=== PATIENT | female | born 1985 | race Caucasian/White ===

== ENCOUNTER 2018-05-07 15:45 | Outpatient (RCR) | payer OTHER, SELFPAY ==
--- NOTE | 2018-05-07 16:56 | DS.PCM_ITS ---
Massage Therapy Discharge Summary: Initial Evaluation: 12/10/2017 Diagnosis: Chronic Back Pain No. of Visits: Date of last visit: 05/07/2018 Goals: Decreased pain Decreased stress This patient is being discharged from our care at the [facility]. Thank you, Noy Wick LMT
== END 2018-05-07 19:00 | disposition home or self-care (01) ==
LOC: MASS 15:45
PROVIDERS: Family Provider Internal Medicine; PCP Internal Medicine; Visit Provider Internal Medicine
DX: M54.9 Dorsalgia, unspecified (principal); G89.29 Other chronic pain
CPT/HCPCS: 97124

== ENCOUNTER → 2024-07-08 | Outpatient (CLI) | payer OTHER, SELFPAY ==
--- NOTE | 2024-07-08 07:47 | BI_ITS ---
PROCEDURE: SCRN MAMM (CAD)W/SANDHYA BILAT REASON FOR EXAM: F, Age 38 y/o , No family history. TECHNIQUE: Bilateral screening digital breast tomosynthesis with 2D and 3D images. Computer aided detection. COMPARISON: None. This is a baseline mammogram. FINDINGS: There are scattered areas of fibroglandular density. No suspicious masses, areas of developing architectural distortion, or suspicious calcifications. BI/SCRN MAMM (CAD)W/SANDHYA BILAT IMPRESSION: BI-RADS 1: NEGATIVE. RECOMMEND ANNUAL MAMMOGRAPHIC SCREENING. Follow-up code: Routine Follow-up The patient will be notified of the results by letter. Reading Location: [facility]
== END | disposition home or self-care (01) ==
PROVIDERS: PCP Internal Medicine; Referring Provider Obstetrics & Gynecology; Visit Provider Obstetrics & Gynecology
DX: Z12.31 Encounter for screening mammogram for malignant neoplasm of breast (principal)
CPT/HCPCS: 77063; 77067

== ENCOUNTER 2024-07-23 11:30 | Day surgery (SDC) | payer OTHER, SELFPAY ==
--- NOTE | 2024-07-23 12:02 | PCM.PRE.AN2 ---
ASA Classification* ASA Classification ASA Classification: 2 Assessment & Plan Anesthesia* Anesthesia Assessment Anesthesia Assessment: Discussed sedation and/or anesthesia options, risks, benefits, and alternatives with patient/parents/legal guardian/POA. Questions invited. The patient/parents/legal guardian/POA seems to understand and agrees to proceed with anesthesia plan. Reviewed the physical assessment, medical history, allergy history and patient home medications list prior to surgery/procedure/anesthetic and documented any changes. Performed airway and anesthesia risk assessments. Anesthesia Type Anesthesia Type: MAC Anesthesia Focused Assessment* Airway Assessment Mouth opens: >3 cm Mallampati Score: II Focused Labs Anesthesia Preop lab: CBC WBC 9.8 K/mm3 (4.4-11.0) 01/06/24 09:35 01/06/24 RBC 4.51 M/mm3 (4.2-5.4) 01/06/24 09:35 01/06/24 Hgb 14.0 g/dL (12.0-15.0) 01/06/24 09:35 01/06/24 Hct 41.0 % (37-47) 01/06/24 09:35 01/06/24 Plt Count 310 K/mm3 (150-450) 01/06/24 09:35 01/06/24 CHEMISTRY Potassium 4.2 mmol/L (3.5-5.1) 01/06/24 09:35 01/06/24 Sodium 140 mmol/L (136-145) 01/06/24 09:35 01/06/24 Phosphorus 2.6 mg/dL (2.5-4.9) 01/06/24 09:35 01/06/24 BUN 14 mg/dL (7-18) 01/06/24 09:35 01/06/24 Creatinine 0.89 mg/dL (0.55-1.02) 01/06/24 09:35 01/06/24 Glucose 95 mg/dL (74-106) 01/06/24 09:35 01/06/24 COAG Urine Test Pending 07/23/24 11:54 07/23/24 Pre-Assessment Diagnosis/Proposed Procedure Planned Operative Procedure(s): EGD Anesthesia History 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 When Was Last Pacemaker Check QUESTION #4 FULL TEXT: You/Your Family Experience fever (hyperthermia) with Anesthesia Last Oral Intake Last Oral intake: Last Oral Intake NPO since Meds taken in AM with sips of water? Meds patient instructed to take am of surgery PONV PONV - benzene operator: PONV - benzene operator Female Yes 07/21/24 10:47 HX of Motion Sickness Yes 07/21/24 10:47 HX of N/V After Surgery No 07/21/24 10:47 Non-Smoker Yes 07/21/24 10:47 Duration of Surgery greater No 07/21/24 10:47 than 60 minutes Number of Risk Factors 3 07/21/24 10:47 PONV Score Moderate Risk 07/21/24 10:47 Height & Weight Height & Weight: Anesthesia: Height & Weight Height 5 ft 3 in 01/07/24 16:34 Respiratory Assessment Respiratory Assessment - benzene operator: Respiratory Tract Infection Hx - benzene operator Hx Respiratory Tract Infection No 07/21/24 10:47 STOP Sleep Apnea STOP Sleep Apnea - benzene operator: STOP Sleep Apnea - benzene operator Hx Hypertension No 07/21/24 10:47 Hx Sleep Apnea No 07/21/24 10:47 CPAP BIPAP Do you snore loudly (louder No 07/21/24 10:47 than talking or can be heard Do you often feel tired/ No 07/21/24 10:47 fatigued/ sleepy during daytime? Has anyone observed you stop No 07/21/24 10:47 breathing during sleep? STOP Results Negative 07/21/24 10:47 QUESTION #5 FULL TEXT : Do you snore loudly (louder than talking or can be heard through closed doors)? 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 Specify any problems Hx of Preganancy in last 3 N/A 07/21/24 10:47 Months Nurse Filling Out Transfusion NBUCHER 07/21/24 10:47 & Questions: Date: 07/21/24 07/21/24 10:47 Time: 10:48 07/21/24 10:47 Patient unable to answer at this time (ie. confused, unrespo /Reproduction History /Reproductive History - benzene operator: /Reproductive Hx- benzene operator Hx Now No 07/21/24 10:47 Gestational Age (in weeks): EDC: Hx Hx Para Hx Section SAB No 07/21/24 10:47 [facility] Medical History (Updated 07/21/24 @ 10:54 by Madonna Banerjee) Wears glasses Wears contact lenses High cholesterol GERD (gastroesophageal reflux disease) History of echocardiogram Preventative health care Elevated blood pressure reading Recent childbirth Vaginal tear resulting from childbirth perianal tear Back pain Migraines Hay fever Hemorrhoids Home Medications ?Medication ?Instructions ?Recorded ?Last Taken ?Type cetirizine 10 mg capsule (Zyrtec) 10 mg PO DAILY PRN allergy symptoms 12/27/20 Unknown History cholecalciferol (vitamin D3) 125 125 mcg PO DAILY 12/27/20 Unknown History mcg (5,000 unit) capsule elderberry fruit 200 mg capsule 200 mg PO DAILY 12/27/20 Unknown History levonorgestrel 20.4 mcg/24 hr (up 1 device intrauterine ONCE 12/27/20 Unknown History to 8 yrs) 52 mg intrauterine device (Liletta) melatonin 10 mg capsule 10 mg PO HS PRN sleep 12/27/20 Unknown History vitamin B comp and C no.3 15 mg-10 1 cap PO DAILY 12/27/20 Unknown History mg-50 mg-5 mg-300 mg capsule (B Complex Plus Vitamin C) lysine 500 mg tablet (L-Lysine) 500 mg PO DAILY 01/07/24 Unknown History flaxseed oil 1,000 mg capsule 1,000 mg PO DAILY 07/21/24 Unknown History Allergy/AdvReac Type Severity Reaction Status Date / Time tuberculin, purified protein Allergy Unknown Verified 07/23/24 12:01 deriva Family History Father Hypercholesterolemia Mother Suicide Depression Grandmother Anemia Arthritis Blood clot in vein Myocardial infarction Hypertension Parkinson disease COPD (chronic obstructive pulmonary disease) CAD (coronary artery disease) Surgical History (Updated 07/21/24 @ 10:54 by Madonna Banerjee) History of hysteroscopy History of wisdom tooth extraction (~2002) Social History (Updated 01/07/24 @ 16:34 by Madonna Arcos MA) adopted: No household members: children number of children: 2 current occupational status: employed 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
[2024-07-23 12:07] VITALS: BP 142/97; PULSE 107; RESP 16; TEMP 37.2; O2SAT 98; BMI 36.5
[2024-07-23 12:15] LABS: Internal QC Validated? YES +Cl - CLEAR BKGD; Pregnancy, Urine Negative Negative
--- NOTE | 2024-07-23 12:30 | EGD_PTH ---
PATIENT: TAMARA ROWE LOC: EN U#:[id number] AGE/SX: 38/F ROOM: RE07/23/[address]: Dr. Luis Santos DO : 1985 BED: DIS: 07/23/2024 SPEC #: [id number] RECD: 07/26/24 09:36 STATUS: NADYA KIKI #: [id number] MAHIN: 07/23/24 12:[address]: Luis Santos DEPT: SURGICAL PATHOLOGY RECD BY: Isidro Epstein ENTERED: 07/26/24 09:37 SP TYPE: EGD BIOPSY ADELINA DR: Dr. Cristin Odom MD Tissues: A - Esophagus, NOS B - Duodenum, NOS Procedures: Surgery Specimen Level IV HEADER OPERATION: EGD with biopsies and dilation PRE-OP DIAGNOSIS: Difficulty swallowing TISSUE SUBMITTED: A- Random esophagus biopsies, B- Duodenal biopsies MICROSCOPIC DIAGNOSIS A. Random esophagus, biopsy: Squamous epithelium and mucosaExudate new (7-8 eosinophils/HPF)No glandular epithelium B. Duodenum, biopsy:Duodenal mucosa without dysplasia, intraepithelial lymphocytes, or neutrophils.Jodi James MD, 07/31/2024 MICROSCOPIC DESCRIPTION Slides are reviewed. GROSS DESCRIPTION A. Received in fixative is one container labeled with the patient's name and designated Random esophagus biopsies. The specimen consists of multiple irregular fragments of light hickman soft tissue that in aggregate measure 1.6 x 0.8 x 0.2 cm. The specimen is totally submitted in one cassette. B. Received in fixative is one container labeled with the patient's name and designated Duodenal biopsies. The specimen consists of two irregular fragments of light hickman soft tissue that in aggregate measure 0.6 x 0.6 x 0.2 cm. The specimen is totally submitted in one cassette. MS/mr 07/26/2024 CPT:38360x6 , TC:2
--- NOTE | 2024-07-23 12:39 | PCM.HP.STD ---
HPI - General General Date of Admission: 07/23/24 Date of Service: 07/23/24 Chief Complaint: dysphagia HPI Narrative TAMARA ROWE, is a 38 F who presents for the evaluation of trouble swallowing and heartburn Details: Pt has been having intermittent issues with swallowing. It has happened a few times over the past 4-5 months. Typically it will get stuck and she will drink water and will then pass. However, she did have one incident where water was not helping it pass which caused her to have pain and anxiety. At the time she was eating a ham sandwich. She has heartburn on rare occasion and has only taken tums as needed. She denies lower GI issues like constipation, diarrhea or blood in her stool. She is on Metamucil for her cholesterol. She has 3-4 formed bm per day. She has never had a colonoscopy or EGD. [facility] Medical History Wears glasses Wears contact lenses High cholesterol GERD (gastroesophageal reflux disease) History of echocardiogram Preventative health care Elevated blood pressure reading Recent childbirth Vaginal tear resulting from childbirth perianal tear Back pain Migraines Hay fever Hemorrhoids Home Medications ?Medication ?Instructions ?Recorded ?Last Taken ?Type cetirizine 10 mg capsule (Zyrtec) 10 mg PO DAILY PRN allergy symptoms 12/27/20 Unknown History cholecalciferol (vitamin D3) 125 125 mcg PO DAILY 12/27/20 Unknown History mcg (5,000 unit) capsule elderberry fruit 200 mg capsule 200 mg PO DAILY 12/27/20 Unknown History levonorgestrel 20.4 mcg/24 hr (up 1 device intrauterine ONCE 12/27/20 Unknown History to 8 yrs) 52 mg intrauterine device (Liletta) melatonin 10 mg capsule 10 mg PO HS PRN sleep 12/27/20 Unknown History vitamin B comp and C no.3 15 mg-10 1 cap PO DAILY 12/27/20 Unknown History mg-50 mg-5 mg-300 mg capsule (B Complex Plus Vitamin C) lysine 500 mg tablet (L-Lysine) 500 mg PO DAILY 01/07/24 Unknown History flaxseed oil 1,000 mg capsule 1,000 mg PO DAILY 07/21/24 Unknown History Allergy/AdvReac Type Severity Reaction Status Date / Time tuberculin, purified protein Allergy Unknown Verified 07/23/24 12:01 deriva Family History Father Hypercholesterolemia Mother Suicide Depression Grandmother Anemia Arthritis Blood clot in vein Myocardial infarction Hypertension Parkinson disease COPD (chronic obstructive pulmonary disease) CAD (coronary artery disease) Surgical History History of hysteroscopy History of wisdom tooth extraction (~2002) Social History adopted: No household members: children number of children: 2 current occupational status: employed 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 pets and animals: No sexually active: Yes Smoking Status: Former smoker quit date: 05/12/06 Tobacco: How many years used: 10 alcohol intake: current alcohol intake frequency: a few times a month Alcohol type: wine substance use type: does not use caffeine: Yes (2) Type: coffee what type of physical activity do you participate in: walking, weight training and other details: Stairs @ work frequency: daily do you feel safe at home: Yes ROS Constitutional Constitutional: Denies fatigue, fever(s), poor appetite, weight gain or weight loss Gastrointestinal Gastrointestinal: Denies belching, bloating, change in bowel habits, change in stool character, chewing difficulty, coffee ground emesis, constipation, cramping, diarrhea, dyspepsia, dysphagia, early satiety, excessive flatus, fecal incontinence, heartburn, hematemesis, hematochezia, hemorrhoids, loose stools, melena, nausea, odynophagia, rectal bleeding, tenesmus, vomiting or weight changes Vital Signs Vital Signs Vital Signs: 07/23/24 12:07 07/23/24 12:07 Temperature 99 F Temperature Source Temporal Pulse Rate 107 H Respiratory Rate 16 Respiratory Pattern Normal Blood Pressure 142/97 H Blood Pressure Mean 112 Blood Pressure Source Monitor Blood Pressure Position Semi-Fowlers Blood Pressure Location Right Arm Pulse Ox 98 Oxygen Delivery Method Room Air Weight Weight: 206 lb 5.643 oz Body Mass Index (BMI) 36.5 Physical Exam Const alert, oriented x3, no apparent distress and healthy appearing General Appearance: cooperative GI normal to inspection, nondistended, normoactive bowel sounds, soft to palpation, non-tender and non-distended Percussion: normal to percussion Rectal Exam: deferred Results Lab / Micro Data Labs: Laboratory Results - last 24 hr 07/23/24 11:54: Urine Test Negative Assessment & Plan Assessment/Plan (1) Difficulty swallowing: PLAN: Assessment and Plan Assessment and Plan (1) Difficulty swallowing: Status: Acute Plan: This is a 38 yo female pt here for evaluation of difficulty swallowing intermittently over the past 4-5 months. She has had one severe instance where the food bolus would not pass with water which caused pain and anxiety. She will undergo EGD to assess for esophageal stenosis, dysmotility, or EOE. She will start on PPI therapy in the meantime. -Start omeprazole 20 mg daily -EGD with dilation if indicated Medications: New omeprazole 20 mg PO QDAY 60 caps 0RF
[2024-07-23 13:11] VITALS: BP 102/75; BP 142/97; PULSE 93; RESP 16; TEMP 36.7; O2SAT 96
[2024-07-23 13:15] VITALS: BP 104/80; BP 142/97; PULSE 94; RESP 16; O2SAT 96
--- NOTE | 2024-07-23 13:15 | OP.EGD_ITS ---
Patient Name: Angeles Hale Procedure Date: 07/23/2024 12:45 PM Date of : 1985 Age: 38 Procedure: Upper GI endoscopy Indications: Dysphagia, Heartburn Providers: Luis Santos DO Referring MD: Cristin Odom MD Medicines: Monitored Anesthesia Care Patient Profile: This is a 38 year old female. Refer to note in patient chart for documentation of history and physical. Patient has symptoms. Complications: No immediate complications. Procedure: Pre-Anesthesia Assessment: - Prior to the procedure, a History and Physical was performed, and patient medications and allergies were reviewed. The patient is competent. The risks and benefits of the procedure and the sedation options and risks were discussed with the patient. All questions were answered and informed consent was obtained. Patient identification and proposed procedure were verified by the physician in the pre-procedure area. Mental Status Examination: alert and oriented. Airway Examination: normal oropharyngeal airway and neck mobility. Respiratory Examination: clear to auscultation. CV Examination: normal. Prophylactic Antibiotics: The patient does not require prophylactic antibiotics. Prior Anticoagulants: The patient has taken no anticoagulant or antiplatelet agents. ASA Grade Assessment: II - A patient with mild systemic disease. After reviewing the risks and benefits, the patient was deemed in satisfactory condition to undergo the procedure. The anesthesia plan was to use monitored anesthesia care (MAC). Immediately prior to administration of medications, the patient was re-assessed for adequacy to receive sedatives. The heart rate, respiratory rate, oxygen saturations, blood pressure, adequacy of pulmonary ventilation, and response to care were monitored throughout the procedure. The physical status of the patient was re-assessed after the procedure. After obtaining informed consent, the endoscope was passed under direct vision. Throughout the procedure, the patient's blood pressure, pulse, and oxygen saturations were monitored continuously. The gastroscope was introduced through the mouth, and advanced to the second part of duodenum. The upper GI endoscopy was accomplished without difficulty. The patient tolerated the procedure well. Scope In: 12:57:40 PM Scope Out: 1:05:15 PM Total Procedure Duration Time 0 hours 7 minutes 35 seconds Findings: Mucosal changes including ringed esophagus, small-caliber esophagus and circumferential folds were found in the middle third of the esophagus and in the lower third of the esophagus. Esophageal findings were graded using the Eosinophilic Esophagitis Endoscopic Reference Score (EoE-EREFS) as: Edema Grade 1 Present (decreased clarity or absence of vascular markings), Rings Grade 2 Moderate (distinct rings that do not occlude passage of diagnostic 8-10 mm endoscope), Exudates Grade 1 Mild (scattered white lesions involving less than 10 percent of the esophageal surface area) and Furrows Grade 1 Mild (vertical lines without visible depth). A guidewire was placed and the scope was withdrawn. Dilation was performed with a Savary dilator with no resistance at 57 Fr. The dilation site was examined and showed moderate improvement in luminal narrowing. Estimated blood loss: none. A medium-sized hiatal hernia was present. Patchy mildly erythematous mucosa without active bleeding and with no stigmata of bleeding was found in the duodenal bulb. Biopsies were taken with a cold forceps for histology. Verification of patient identification for the specimen was done. Estimated blood loss was minimal. Impression: - Esophageal mucosal changes suggestive of eosinophilic esophagitis. Dilated. - Medium-sized hiatal hernia. - Erythematous duodenopathy. Biopsied. Recommendation: - Discharge patient to home. - Resume previous diet. - Continue present medications. - Await pathology results. Procedure Code(s): --- Professional --- 79009, Esophagogastroduodenoscopy, flexible, transoral; with insertion of guide wire followed by passage of dilator(s) through esophagus over guide wire 04925, 59,51, Esophagogastroduodenoscopy, flexible, transoral; with biopsy, single or multiple CPT copyright 2021 [employer]. All rights reserved. The codes documented in this report are preliminary and upon braille coder review may be revised to meet current compliance requirements. Luis Santos DO 07/23/2024 1:15:11 PM This report has been signed electronically. Number of Addenda: 0 Note Initiated On: 07/23/2024 12:45 PM
--- NOTE | 2024-07-23 13:15 | OP.CCLET_ITS ---
07/23/2024 Cristin Odom MD [address] [place] [address] [place] [address] Re : Upper GI endoscopy procedure for Angeles Hale Dear Dr. Odom This procedure was performed on Tuesday, July 23, 2024. My impressions and recommendations are as follows: Impressions : - Esophageal mucosal changes suggestive of eosinophilic esophagitis. Dilated. - Medium-sized hiatal hernia. - Erythematous duodenopathy. Biopsied. Recommendations : - Discharge patient to home. - Resume previous diet. - Continue present medications. - Await pathology results. My findings are described in the full procedure note, which is enclosed. If I can be of further assistance, please feel free to contact me at . Sincerely, Luis Friend, 07/23/2024 1:15:11 PM This report has been signed electronically.
--- NOTE | 2024-07-23 13:19 | PCM.POST.ANE ---
Anesthesia: Postop Eval I Current Vital Signs Temperature: 98 F Pulse Rate: 89 Blood Pressure: 102/75 Respiratory Rate: 16 Pulse Ox: 97 Oxygen Delivery Method: Room Air Assessment Airway patent: Yes Spontaneous unlabored respirations: Yes Mental status: Awake and Calm nausea: No Vomiting: No Anesthesia Complication: No Fluid Hydration Crystalloid volume administer (ml): 30 Total IV fluid infused: 30 Progress Note Anesthesia document: Postop Eval 1 completed: Yes
[2024-07-23 13:20] VITALS: BP 102/75; BP 106/77; BP 142/97; PULSE 85; PULSE 89; RESP 16; TEMP 36.6; O2SAT 95; O2SAT 97
[2024-07-23 13:32] VITALS: BP 107/75; BP 142/97; PULSE 78; RESP 16; TEMP 36.7; O2SAT 99
[2024-07-23 13:42] VITALS: BP 142/97
--- NOTE | 2024-07-23 15:16 | PCM.POSTANE2 ---
Anesthesia Postop Eval I Sum Postop Eval Completion status Anesthesia document: Postop Eval 1 completed: Yes Anesthesia Postop Eval I Summary Anesthesia Postop Eval I Summary: Anesthesia Postop Eval I: Assessment Summary Airway patent Yes 07/23/24 13:20 [email or web address] Spontaneous unlabored Yes 07/23/24 13:20 [email or web address] respirations Mental status Awake,Calm 07/23/24 13:20 [email or web address] nausea No 07/23/24 13:20 [email or web address] Vomiting No 07/23/24 13:20 [email or web address] Anesthesia Postop Eval I: Fluid Summary Crystalloid volume administer 30 07/23/24 13:20 [email or web address] (ml) Colloids volume administered ( ml) Blood Product volume administered (ml) Total IV fluid infused 30 07/23/24 13:20 [email or web address] Anesthesia Postop Eval I: Summary Notes Anesthesia Complication No 07/23/24 13:20 [email or web address] Anesthesia Complication Comment: Post-operative progress note Anesthesia: Postop Eval II Evaluation Mental status: Awake Pain Level: 0 nausea: No Vomiting: No
== END 2024-07-23 14:08 | disposition home or self-care (01) ==
LOC: EN 11:31 → AC 11:32
PROVIDERS: Anesthesiology; PCP Internal Medicine; Referring Provider Internal Medicine; Visit Provider Internal Medicine Gastroenterology
PROC: 0DJ08ZZ Inspection of Upper Intestinal Tract, Via Natural or Artificial Opening Endoscopic (ICD-10-PCS; CPT 43235; principal; 2024-07-23 12:25)
DX: R13.10 Dysphagia, unspecified (principal); K44.9 Diaphragmatic hernia without obstruction or gangrene; E78.00 Pure hypercholesterolemia, unspecified; Z87.891 Personal history of nicotine dependence; R12 Heartburn; K22.89 Other specified disease of esophagus; K31.89 Other diseases of stomach and duodenum
CPT/HCPCS: 43248; 43239; 81025; 88305; A4216; C1769; J2405